=== PATIENT | female | born 1955 | race Caucasian/White ===

== ENCOUNTER 2020-07-25 06:59 | Day surgery (SDC) | payer BC ==
[~2020-07-25 06:59] MED LIST: ANASTROZOLE1 MG PO; ATELVIA35 MG PO; CRESTOR10 MG PO; CYTOMEL5 MCG PO; ESOMEPRAZOLE MA40 MG PO; LEVOXYL75 MCG PO; MULTIVITAMI9 PO; SYNTHROID75 MCG PO; VITAMI17 PO; VITAMIN C250 MG PO; VITAMIN D5000 UNI1; VITAMIN D5000 UNI1 PO; XANAX0.5 MG PO
[2020-07-25 10:14] VITALS: BP 159/82
== END 2020-07-25 09:15 | disposition home or self-care (01) | DRG 552 ==
LOC: ORM 06:59
PROVIDERS: ATTEND Anesthesiology Pain Medicine
DX: M54.2 Cervicalgia (principal); Z01.84 Encounter for antibody response examination